=== PATIENT | male | born 1995 | race Caucasian/White ===

== ENCOUNTER 2022-01-08 07:26 | Emergency (ER) | payer OTHER ==
[~2022-01-08] VITALS: Ht 185.4 cm; Wt 79.0 kg
[2022-01-08] MEDS ORDERED: ACETAMINOPHEN 325MG TABLET PO ONE (08:30)
[2022-01-08] MEDS ORDERED: IBUPROFEN 400MG TABLET PO ONE (08:30)
[2022-01-08 12:32] VITALS: BP 127/71
== END 2022-01-08 12:32 | disposition home or self-care (01) ==
LOC: ER 07:26
DX: S42.491A Other displaced fracture of lower end of right humerus, initial encounter for closed fracture (principal); V00.131A Fall from skateboard, initial encounter; Y93.89 Activity, other specified; Y92.89 Other specified places as the place of occurrence of the external cause; Y99.8 Other external cause status; Z90.49 Acquired absence of other specified parts of digestive tract
CPT/HCPCS: 29105; 73080; 73090; 73110; 99284